=== PATIENT | female | born 1995 | race Caucasian/White ===

== ENCOUNTER 2017-01-04 00:49 | Emergency (ER) | payer MEDICAID ==
[~2017-01-04] VITALS: Ht 170.2 cm; Wt 100.0 kg
[2017-01-04 01:19] VITALS: BP 126/80
== END 2017-01-04 08:05 | disposition left against medical advice (07) ==
LOC: ER 00:49
DX: R10.9 Unspecified abdominal pain (principal); Z53.21 Procedure and treatment not carried out due to patient leaving prior to being seen by health care provider